=== PATIENT | female | born 1955 | race Caucasian/White ===

== ENCOUNTER 2019-03-09 13:02 | Emergency (ER) | payer BC ==
[2019-03-09] MEDS ORDERED: predniSONE 20 MG Tab PO ONE (13:24)
[2019-03-09] MEDS ORDERED: Albuterol/Ipratropium 3.0-0.5 MG/3 ML Neb Soln NEB ONE (13:25)
[2019-03-09] MEDS ORDERED: Azithromycin 250 MG Tab PO ONE (13:25)
--- NOTE | 2019-03-09 13:33 | EDM.PDOC ---
ED HPI GENERAL MEDICAL PROBLEM - General Chief Complaint: Respiratory Problem Stated Complaint: FEVR, COUGH, ILL Time Seen by Provider: 03/09/19 13:24 Source of Information: Reports: Patient History Limitations: Reports: No Limitations - History of Present Illness INITIAL COMMENTS - FREE TEXT/NARRATIVE: Patient is 63-year-old female who presents to the emergency department this afternoon with a complaint of cough and fever. Patient states symptoms began yesterday, and she does have a granddaughter that is sick with similar symptoms. Patient states that she's had a low-grade fever, occasional chills, and constant cough. Cough is said to be nonproductive. Patient denies chest pain, shortness of breath, nausea, vomiting, diarrhea, abdominal pain, out of country travel, lower extremity edema, or history of asthma or asthma-like symptoms. Onset: Gradual Onset Date: 03/08/19 Duration: Day(s): Severity: Mild Improves with: Reports: None Worsens with: Reports: None Associated Symptoms: Reports: Cough, Fever/Chills. Denies: Chest Pain, cough w sputum, Headaches, Nausea/Vomiting, Shortness of Breath Treatments WASHER BLANKET: Reports: NSAIDS - Related Data Allergies Allergy/AdvReac Type Severity Reaction Status Date / Time No Known Drug Allergies Allergy Cannot Verified 03/09/19 13:37 Remember Home Meds: Home Meds Azithromycin [Zithromax] 500 mg PO DAILY #1 tab 03/09/19 [Rx] Methotrexate Sodium [Methotrexate] 10 mg PO WEEKLY 03/09/19 [History] traMADol HCl [Tramadol HCl] 50 mg PO BID PRN 03/09/19 [History] ED ROS GENERAL - Review of Systems Review Of Systems: ROS reveals no pertinent complaints other than HPI. Constitutional: Reports: Fever, Chills HEENT: Reports: No Symptoms Respiratory: Reports: Cough. Denies: Shortness of Breath, Pleuritic Chest Pain , Sputum, Hemoptysis Cardiovascular: Reports: No Symptoms Endocrine: Reports: No Symptoms GI/Abdominal: Reports: No Symptoms : Reports: No Symptoms Musculoskeletal: Reports: No Symptoms Skin: Reports: No Symptoms Neurological: Reports: No Symptoms Psychiatric: Reports: No Symptoms Hematologic/Lymphatic: Reports: No Symptoms Immunologic: Reports: No Symptoms ED EXAM, GENERAL - Physical Exam Exam: See Below Exam Limited By: No Limitations General Appearance: Alert, WD/WN, No Apparent Distress Eye Exam: Bilateral Eye: Normal Inspection Ears: Normal External Exam, Normal Canal, Normal TMs Nose: Normal Inspection, Normal Mucosa, No Blood Throat/Mouth: Normal Inspection, Normal Oropharynx, No Airway Compromise Head: Atraumatic, Normocephalic Neck: Normal Inspection, Supple, Non-Tender. No: Lymphadenopathy (L), Lymphadenopathy (R) Respiratory/Chest: No Respiratory Distress, Wheezing (faint end expiratory apical wheeze). No: Crackles, Rales, Rhonchi, Prolonged Expiration Cardiovascular: Regular Rate, Rhythm, No Murmur GI/Abdominal: Normal Bowel Sounds, Soft, Non-Tender Extremities: Normal Inspection, No Pedal Edema Neurological: Alert, Oriented, Normal Cognition Psychiatric: Normal Affect, Normal Mood Skin Exam: Warm, Dry, Intact, Normal Color, No Rash Lymphatic: No Adenopathy Course - Orders/Labs/Meds Orders: Active Orders 24 hr Category Date Time Status RT Aerosol Therapy [RC] ASDIRECTED Care 03/09/19 13:25 Ordered Meds: Medications Discontinued Medications Generic Name Dose Route Start Last Admin Trade Name Rowena PRN Reason Stop Dose Admin Albuterol/Ipratropium 3 ml 03/09/19 13:25 Duoneb 3.0-0.5 Mg/3 Ml NEB 03/09/19 13:26 ONETIME ONE Azithromycin 1,000 mg 03/09/19 13:25 Zithromax PO 03/09/19 13:26 ONETIME ONE Prednisone 40 mg 03/09/19 13:24 Prednisone PO 03/09/19 13:25 ONETIME ONE - Re-Assessments/Exams Free Text/Narrative Re-Assessment/Exam: 03/09/19 13:33 Patient afebrile, vital signs stable, bilateral breath sounds are clear. Patient given albuterol/Atrovent neb treatment, 500 mg Zithromax, and 40 mg prednisone in ER. Patient will be started on 3 day course of 500 mg Zithromax. She'll follow-up at [facility] in 2 days. Departure - Departure Time of Disposition: 13:46 Disposition: Home, Self-Care 01 Condition: Good Clinical Impression: Bronchitis - Discharge Information Prescriptions: Azithromycin [Zithromax] 500 mg PO DAILY #1 tab Instructions: Acute Bronchitis, Adult, [id number] Referrals: Guera Quiros PA-C [Primary Care Provider] - Forms: ED Department Discharge Additional Instructions: Follow-up at [facility] in 2 days. Return to emergency room sooner symptoms continue or worsen. Take medication as directed. - My Orders Last 24 Hours: My Active Orders 03/09/19 13:25 RT Aerosol Therapy [RC] ASDIRECTED - Assessment/Plan Last 24 Hours: My Active Orders 03/09/19 13:25 RT Aerosol Therapy [RC] ASDIRECTED Assessment:: Bronchitis Plan: Follow-up at [facility] in 2 days
== END 2019-03-09 14:10 | disposition home or self-care (01) ==
LOC: KA.ED 13:02
DX: J40 Bronchitis, not specified as acute or chronic (principal); Z79.899 Other long term (current) drug therapy
CPT/HCPCS: 94640; 99283; A9270-GY; J7620-GY